=== PATIENT | male | born 1995 | race Caucasian/White ===

== ENCOUNTER 2016-10-17 20:16 | Emergency (ER) | payer SELFPAY ==
[~2016-10-17] VITALS: Ht 177.8 cm; Wt 54.5 kg
[~2016-10-17 20:16] MED LIST: NAPROSYN500 MG PO; NO HOME MEDS; VITAMINS
[2016-10-17] MEDS ORDERED: TOBREX5 ML RIGHT EYE (21:20)
[2016-10-17 21:37] VITALS: BP 144/86
== END 2016-10-17 21:38 | disposition home or self-care (01) ==
LOC: EME 20:16
DX: H10.31 Unspecified acute conjunctivitis, right eye (principal)
CPT/HCPCS: 99281; 99283

== ENCOUNTER 2016-12-26 18:41 | Emergency (ER) | payer OTHER ==
[~2016-12-26] VITALS: Ht 177.8 cm; Wt 53.7 kg
[~2016-12-26 18:41] MED LIST changes: +TOBREX5 ML RIGHT EYE
[2016-12-26 19:26] LABS: ADD MIUA? YES; BILIRUBIN NEGATIVE; BLOOD MODERATE; COLOR YELLOW ((YELLOW)); GLUCOSE (STRIP) NEGATIVE; KETONES NEGATIVE; LEUKOCYTES NEGATIVE; NITRITE NEGATIVE; PROTEIN (STRIP) 30; SPECIFIC GRAVITY 1.015 (1.000-1.030); UROBILINOGEN 0.2 MG/DL (0.2-1.0)
[2016-12-26 19:29] LABS: HEMATOCRIT 43.6 % (38.0-50.0); MCH 33.4 PG (29.0-34.0); MCHC 34.9 G/DL (30.0-36.0); MCV 95.8 FL (86-99); MEAN PLAT.VOLUME 9.6 uM^3 (9.0-12.4); PLATELET COUNT 234 K/uL (156-360); RBC DIS.WIDTH-CV 12.1 % (11.8-14.6); RBC DIS.WIDTH-SD 42.5 % (39-53); RED BLOOD COUNT 4.55 M/uL (4.00-5.50); WHITE BLOOD COUNT 9.2 K/uL (4.1-10.2)
[2016-12-26 19:35] LABS: BACTERIA NONE SEEN /HPF; EPITHELIAL CELLS NONE SEEN /HPF; MUCUS TRACE /LPF; RED BLOOD CELLS 0-5 /HPF (0-5); UCUL ADDED? NO; WHITE BLOOD CELLS 0-5 /HPF (0-5)
[2016-12-26 19:46] LABS: CHLORIDE 102 mEq/L (99-109); POTASSIUM 3.2 mEq/L (3.7-5.4); SODIUM 139 mEq/L (136-147)
[2016-12-26 19:48] LABS: GLUCOSE 84 mg/dL (70-99)
[2016-12-26 19:49] LABS: ANION GAP 11 MEQ/L (2-14)
[2016-12-26 19:50] LABS: TOTAL BILIRUBIN 0.9 mg/dL (0.0-1.0)
[2016-12-26 19:52] LABS: ALKALINE PHOSPHATASE 69 IU/L (3-129); GFR ESTIMATE (CALCULATED) > 59 mL/min/
[2016-12-26 19:53] LABS: UREA NITROGEN (BUN) 11 mg/dL (9-23)
[2016-12-26 19:55] LABS: LIPASE 16 U/L (1.0-51.0)
[2016-12-26] MEDS ORDERED: CIPRO500 MG PO (22:41)
[2016-12-26] MEDS ORDERED: FLAGYL500 MG PO (22:41)
[2016-12-26] MEDS ORDERED: ZOFRAN ODT4 MG PO (22:41)
[2016-12-26 22:58] VITALS: BP 143/89
== END 2016-12-26 22:59 | disposition home or self-care (01) ==
LOC: EXP 18:41 → EME 18:41 → EXP 22:59
DX: R10.30 Lower abdominal pain, unspecified (principal); R19.7 Diarrhea, unspecified; R11.0 Nausea; F17.200 Nicotine dependence, unspecified, uncomplicated
CPT/HCPCS: 74177; 80053; 81003; 83690; 85027; 99281; 99285; J2270; J2405; J7030

== ENCOUNTER 2017-03-10 11:10 | Emergency (ER) | payer OTHER ==
[~2017-03-10] VITALS: Ht 177.8 cm; Wt 55.7 kg
[~2017-03-10 11:10] MED LIST changes: +CIPRO500 MG PO; +FLAGYL500 MG PO; +ZOFRAN ODT4 MG PO
[2017-03-10] MEDS ORDERED: WESTCORT 0.2% C15 GM TP (13:48)
[2017-03-10 14:01] VITALS: BP 141/81
== END 2017-03-10 14:18 | disposition home or self-care (01) ==
LOC: EME 11:10
DX: L23.9 Allergic contact dermatitis, unspecified cause (principal); F17.200 Nicotine dependence, unspecified, uncomplicated
CPT/HCPCS: 99281; 99284

== ENCOUNTER 2017-04-22 16:32 | Emergency (ER) | payer OTHER ==
[~2017-04-22] VITALS: Ht 177.8 cm; Wt 58.1 kg
[~2017-04-22 16:32] MED LIST changes: +WESTCORT 0.2% C15 GM TP
[2017-04-22 18:49] LABS: ADD MIUA? YES; BILIRUBIN NEGATIVE; BLOOD NEGATIVE; COLOR YELLOW ((YELLOW)); GLUCOSE (STRIP) NEGATIVE; KETONES 5; LEUKOCYTES TRACE; NITRITE NEGATIVE; PROTEIN (STRIP) >=500; SPECIFIC GRAVITY 1.017 (1.000-1.030); UROBILINOGEN 0.2 MG/DL (0.2-1.0)
[2017-04-22 19:01] LABS: HEMATOCRIT 43.5 % (38.0-50.0); MCH 34.2 PG (29.0-34.0); MCHC 34.9 G/DL (30.0-36.0); MCV 97.8 FL (86-99); MEAN PLAT.VOLUME 10.3 uM^3 (9.0-12.4); PLATELET COUNT 255 K/uL (156-360); RBC DIS.WIDTH-CV 12.4 % (11.8-14.6); RBC DIS.WIDTH-SD 45.1 % (39-53); RED BLOOD COUNT 4.45 M/uL (4.00-5.50); WHITE BLOOD COUNT 7.6 K/uL (4.1-10.2)
[2017-04-22 19:11] LABS: BACTERIA NONE SEEN /HPF; EPITHELIAL CELLS NONE SEEN /HPF; MUCUS TRACE /LPF; UCUL ADDED? NO; WHITE BLOOD CELLS 0-5 /HPF (0-5)
[2017-04-22 19:11] LABS: CHLORIDE 103 mEq/L (99-109); POTASSIUM 3.6 mEq/L (3.7-5.4); SODIUM 142 mEq/L (136-147)
[2017-04-22 19:13] LABS: GLUCOSE 81 mg/dL (70-99)
[2017-04-22 19:14] LABS: ANION GAP 9 MEQ/L (2-14)
[2017-04-22 19:15] LABS: TOTAL BILIRUBIN 0.7 mg/dL (0.0-1.0)
[2017-04-22 19:16] LABS: ALKALINE PHOSPHATASE 67 IU/L (3-129)
[2017-04-22 19:17] LABS: GFR ESTIMATE (CALCULATED) > 59 mL/min/
[2017-04-22 19:18] LABS: UREA NITROGEN (BUN) 11 mg/dL (9-23)
[2017-04-22] MEDS ORDERED: ANTIFUNGAL30 GM TP (19:57)
[2017-04-22] MEDS ORDERED: PREDNISONE10 M1 PO (19:57)
[2017-04-22 20:12] VITALS: BP 119/88
[2017-04-22] MEDS ORDERED: AZITHROMYCIN250 MG PO (20:13)
[2017-04-23 10:04] LABS: HIV INDEX 0.12; HIV-1/2 AB/AG COMBO Nonreactive
== END 2017-04-22 20:12 | disposition home or self-care (01) ==
LOC: EME 16:32
PROVIDERS: Physician Assistant
DX: R21 Rash and other nonspecific skin eruption (principal); L29.9 Pruritus, unspecified; F17.200 Nicotine dependence, unspecified, uncomplicated
CPT/HCPCS: 80053; 81003; 85027; 86703; 99281; 99284

== ENCOUNTER 2017-08-26 19:37 | Emergency (ER) | payer OTHER ==
[~2017-08-26] VITALS: Ht 177.8 cm; Wt 55.2 kg
[~2017-08-26 19:37] MED LIST changes: +ANTIFUNGAL30 GM TP; +AZITHROMYCIN250 MG PO; +PREDNISONE10 M1 PO
[2017-08-26 20:45] LABS: HEMATOCRIT 37.9 % (38.0-50.0); HEMOGLOBIN 13.8 G/DL (12.5-16.6); MCH 34.2 PG (29.0-34.0); MCHC 36.4 G/DL (30.0-36.0); MCV 93.8 FL (86-99); PLATELET COUNT 177 K/uL (156-360); RBC DIS.WIDTH-CV 12.3 % (11.8-14.6); RED BLOOD COUNT 4.04 M/uL (4.00-5.50); WHITE BLOOD COUNT 4.8 K/uL (4.1-10.2)
[2017-08-26 20:56] LABS: ALBUMIN 4.2 g/dL (3.2-4.8); CHLORIDE 106 mEq/L (99-109); POTASSIUM 3.6 mEq/L (3.7-5.4); SODIUM 140 mEq/L (136-147)
[2017-08-26 20:58] LABS: GLUCOSE 103 mg/dL (70-99); TOTAL PROTEIN 6.3 g/dL (6.4-8.3)
[2017-08-26 21:00] LABS: TOTAL BILIRUBIN 0.7 mg/dL (0.0-1.0)
[2017-08-26 21:01] LABS: SERUM ETHYL ALCOHOL < 10 mg/dL
[2017-08-26 21:02] LABS: ALKALINE PHOSPHATASE 58 IU/L (3-129); CREATININE 0.8 mg/dL (0.6-1.3); GFR ESTIMATE (CALCULATED) > 59 mL/min/ (58.99-99999)
[2017-08-26 21:03] LABS: AST (GOT) 23 IU/L (2-34); UREA NITROGEN (BUN) 7 mg/dL (9-23)
[2017-08-26 21:05] LABS: ALT (GPT) 14 IU/L (3-49)
[2017-08-26 21:23] LABS: APPEARANCE CLEAR ((CLEAR)); BILIRUBIN NEGATIVE; BLOOD NEGATIVE; COLOR YELLOW ((YELLOW)); GLUCOSE (STRIP) NEGATIVE; KETONES NEGATIVE; LEUKOCYTES NEGATIVE; NITRITE NEGATIVE; PROTEIN (STRIP) 100; SPECIFIC GRAVITY 1.008 (1.000-1.030); UROBILINOGEN 0.2 MG/DL (0.2-1.0)
[2017-08-26 21:29] LABS: BACTERIA NONE SEEN /HPF; EPITHELIAL CELLS NONE SEEN /HPF; HYALINE CASTS 0-5 /LPF; MUCUS TRACE /LPF; RED BLOOD CELLS NONE SEEN /HPF (0-5); WHITE BLOOD CELLS 0-5 /HPF (0-5)
[2017-08-26 21:30] LABS: AMPHETAMINE NEGATIVE (500 ng/mL); BARBITURATES NEGATIVE (200 ng/mL); BENZODIAZEPINES NEGATIVE (150 ng/mL); BUPRENORPHINE NEGATIVE (10 ng/mL); COCAINE NEGATIVE (150 ng/mL); METHADONE NEGATIVE (200 ng/mL); METHAMPHETAMINE NEGATIVE (500 ng/mL); OPIATES (MORPHINE) NEGATIVE (100 ng/mL); OXYCODONE NEGATIVE (100 ng/mL); PHENCYCLIDINE NEGATIVE (25 ng/mL); PROPOXYPHENE NEGATIVE (300 ng/mL); THC CANNABINOIDS PRESUMPTIVE POSITIVE (50 ng/mL); TRICYCLIC ANTIDEPRESSANTS NEGATIVE (300 ng/mL)
[2017-08-27 01:17] VITALS: BP 122/73
== END 2017-08-27 01:17 ==
LOC: EME 19:37
PROVIDERS: Emergency Medicine
DX: R45.851 Suicidal ideations (principal); F12.10 Cannabis abuse, uncomplicated; F33.2 Major depressive disorder, recurrent severe without psychotic features; F50.02 Anorexia nervosa, binge eating/purging type; F41.9 Anxiety disorder, unspecified; F17.200 Nicotine dependence, unspecified, uncomplicated; Z91.5 Personal history of self-harm
CPT/HCPCS: 80053; 81003; 84999; 85027; 90837; 99281; 99285; G0480